=== PATIENT | female | born 1955 | race Two or more races ===

== ENCOUNTER 2023-09-17 17:12 | Inpatient (IN) | payer OTHER ==
[~2023-09-17] VITALS: Ht 165.1 cm; Wt 125.9 kg
[2023-09-17 19:22] LABS: Basophils # (auto) 0.2 10 ^3/uL (0-0.2); Basophils % (auto) 1.7 % (0.0-2.0); Eosinophils # (auto) 0.4 10 ^3/uL (0-0.8); Eosinophils % (auto) 4.2 % (0.0-7.0); Hematocrit 47.3 % (36.0-46.0); Hemoglobin 15.3 g/dL (12.2-16.2); Lymphocytes # (auto) 0.9 10 ^3/uL (0.4-5.4); Lymphocytes % (auto) 8.3 % (10.0-50.0); Mean Corpuscular Hemoglobin 30.3 pg (28.0-32.0); Mean Corpuscular Hgb Conc. 32.4 g/dL (32.0-36.0); Mean Corpuscular Volume 93.5 fL (80.0-100.0); Monocytes # (auto) 0.5 10 ^3/uL (0-1.3); Monocytes % (auto) 5.3 % (0.0-12.0); Neutrophils # (auto) 8.3 10 ^3/uL (1.6-8.6); Neutrophils % (auto) 80.5 % (37.0-80.0); Nucleated Red Blood Cells % 0.1 %; Red Blood Cells 5.06 10^6/uL (4.0-5.20); Red Cell Distribution Width 15.8 % (11.8-14.3); White Blood Cell 10.3 10^3/uL (4.4-10.8)
[2023-09-17 19:35] LABS: INR 1.03 (0.9-1.15); Partial Thromboplastin Time 26.8 SEC (24.5-34.5); Prothrombin Time 10.8 sec (9.3-11.8)
[2023-09-17 19:41] LABS: Alanine Aminotransferase 159 U/L (7-40); Albumin 4.3 g/dL (3.2-4.8); Alkaline Phosphatase 171 U/L (46-116); Anion Gap 12 (5-15); Aspartate Aminotransferase 158 U/L (13-40); BUN/Creatinine Ratio 15.5 (10.0-20.0); Blood Urea Nitrogen 16 mg/dL (9-23); Calcium 10.2 mg/dL (8.5-10.1); Carbon Dioxide 23 mmol/L (20-30); Chloride 108 mmol/L (98-107); Glucose 122 mg/dL (74-106); Potassium 4.1 mmol/L (3.5-5.1); Sodium 143 mmol/L (136-145)
[2023-09-17 19:42] LABS: Total Protein 7.4 g/dL (5.7-8.2)
[2023-09-17] MEDS ORDERED: IOHEXOL 350 MG/ML 100ML IJ ONE (21:31)
[2023-09-17] MEDS ORDERED: HEPARIN SODIUM (PORCINE) 5000 UNITS/ML 1ML VIAL IV ONE ×2 (22:45→23:00)
[2023-09-17] MEDS ORDERED: HEPARIN DRIP/D5W 100UNITS/ML 250 ML IV SCH (22:45)
[2023-09-17] MEDS ORDERED: MORPHINE SULFATE INJ 2 MG/ml SYRG IV PRN (23:15)
[2023-09-17] MEDS ORDERED: HYDROcodone-ACET 5/325MG TAB PO PRN (23:15)
[2023-09-17] MEDS ORDERED: NITROGLYCERIN 0.4 MG SL TAB SL PRN (23:15)
[2023-09-17] MEDS ORDERED: DEXTROSE (50%) 50ML SYRG IV PRN (23:15)
[2023-09-17] MEDS ORDERED: ONDANSETRON HCL 4 MG/2 ML VIAL IV PRN (23:15)
[2023-09-17] MEDS ORDERED: ACETAMINOPHEN 325 MG TAB PO PRN (23:15)
[2023-09-17] MEDS ORDERED: HEPARIN SODIUM (PORCINE) 5000 UNITS/ML 1ML VIAL ONE (23:29)
[2023-09-17] MEDS ORDERED: ALBUTEROL SULF 2.5 MG/0.5ML(0.5%) NEB SOLN NEB PRN (23:30)
[2023-09-18 00:25] VITALS: PULSE 120; RESP 29; O2SAT 96
[2023-09-18 00:52] LABS: INR 1.04 (0.9-1.15); Partial Thromboplastin Time 23.9 SEC (24.5-34.5); Prothrombin Time 11.1 sec (9.3-11.8)
[2023-09-18 01:46] LABS: Basophils # (auto) 0 10 ^3/uL (0-0.2); Basophils % (auto) 0.4 % (0.0-2.0); Eosinophils # (auto) 0.1 10 ^3/uL (0-0.8); Eosinophils % (auto) 1.4 % (0.0-7.0); Hematocrit 43.9 % (36.0-46.0); Hemoglobin 14.5 g/dL (12.2-16.2); Lymphocytes # (auto) 1.4 10 ^3/uL (0.4-5.4); Lymphocytes % (auto) 15.2 % (10.0-50.0); Mean Corpuscular Hemoglobin 30.7 pg (28.0-32.0); Monocytes # (auto) 0.7 10 ^3/uL (0-1.3); Monocytes % (auto) 7.2 % (0.0-12.0); Neutrophils % (auto) 75.8 % (37.0-80.0); Nucleated Red Blood Cells % 0.1 %; Red Blood Cells 4.72 10^6/uL (4.0-5.20); Red Cell Distribution Width 15.7 % (11.8-14.3); White Blood Cell 9.3 10^3/uL (4.4-10.8)
[2023-09-18 01:54] LABS: Urine Bacteria FEW /hpf (None Seen); Urine Blood 1+ /uL (Negative); Urine Clarity Clear (Clear); Urine Color Yellow (Yellow); Urine Mucus FEW (None Seen); Urine Protein, UAD 1+ (Negative); Urine Urobilinogen Normal (Negative); Urine WBC 2 /hpf (0 - 5); Urine pH 5.5 (5.0-8.0)
[2023-09-18 01:57] VITALS: BP 114/73; PULSE 127; RESP 34; TEMP 97.7; O2SAT 92
[2023-09-18 02:03] LABS: Urine Specific Gravity > 1.050 (1.001-1.035)
[2023-09-18 04:10] LABS: Basophils # (auto) 0 10 ^3/uL (0-0.2); Basophils % (auto) 0.4 % (0.0-2.0); Eosinophils # (auto) 0.1 10 ^3/uL (0-0.8); Eosinophils % (auto) 1.7 % (0.0-7.0); Hematocrit 41.9 % (36.0-46.0); Lymphocytes # (auto) 1.3 10 ^3/uL (0.4-5.4); Lymphocytes % (auto) 14.9 % (10.0-50.0); Mean Corpuscular Hemoglobin 30.8 pg (28.0-32.0); Mean Corpuscular Hgb Conc. 33.5 g/dL (32.0-36.0); Mean Corpuscular Volume 92.1 fL (80.0-100.0); Monocytes # (auto) 0.5 10 ^3/uL (0-1.3); Neutrophils # (auto) 6.8 10 ^3/uL (1.6-8.6); Red Blood Cells 4.55 10^6/uL (4.0-5.20); Red Cell Distribution Width 15.7 % (11.8-14.3); White Blood Cell 8.8 10^3/uL (4.4-10.8)
[2023-09-18 04:34] LABS: Alanine Aminotransferase 121 U/L (7-40); Albumin 3.9 g/dL (3.2-4.8); Alkaline Phosphatase 148 U/L (46-116); Anion Gap 11 (5-15); Aspartate Aminotransferase 74 U/L (13-40); BUN/Creatinine Ratio 26.7 (10.0-20.0); Blood Urea Nitrogen 24 mg/dL (9-23); Calcium 9.2 mg/dL (8.7-10.4); Carbon Dioxide 21 mmol/L (20-30); Chloride 109 mmol/L (98-107); Glucose 134 mg/dL (74-106); Potassium 4.4 mmol/L (3.5-5.1); Sodium 141 mmol/L (136-145)
[2023-09-18 04:35] LABS: Bilirubin, Total 1.1 mg/dL (0.2-1.0); Total Protein 6.5 g/dL (5.7-8.2)
[2023-09-18] MEDS: InsuLIN REG 1unit/0.01ml Soln (100units/ml) SC SCH ×4 (06:25→22:00)
[2023-09-18] MEDS: ACCU-CHEK COMFORT CURVE STRIP VI SCH ×4 (06:26→22:31)
[2023-09-18 09:05] LABS: Prothrombin Time 11.7 sec (9.3-11.8)
[2023-09-18 09:06] LABS: Partial Thromboplastin Time > 139.0 SEC (24.5-34.5)
[2023-09-18] MEDS ORDERED: LOSARTAN POTASSIUM 25 MG TAB PO SCH (10:00)
[2023-09-18 10:24] VITALS: O2SAT 95
[2023-09-18 10:25] VITALS: O2SAT 95
[2023-09-18] MEDS ORDERED: HEPARIN DRIP/D5W 100UNITS/ML 250 ML IV SCH ×2 (10:30→19:00)
[2023-09-18] MEDS: SODIUM CHLORIDE 0.9% 1,000 ML IV SCH (13:15)
[2023-09-18] MEDS: ceFAZolin 1GM/50ML 50 ML IV SCH ×2 (14:00→22:31)
[2023-09-18 17:55] LABS: INR 1.13 (0.9-1.15); Prothrombin Time 11.8 sec (9.3-11.8)
[2023-09-18 17:58] LABS: Partial Thromboplastin Time 105.7 SEC (24.5-34.5)
[2023-09-18 18:42] VITALS: O2SAT 93
[2023-09-18 19:35] VITALS: RESP 20; O2SAT 93
[2023-09-18] MEDS ORDERED: ATORVASTATIN 20 MG TAB PO SCH (22:00)
[2023-09-19] MEDS: SODIUM CHLORIDE 0.9% 1,000 ML IV SCH ×3 (02:35→21:02)
[2023-09-19] MEDS: ceFAZolin 1GM/50ML 50 ML IV SCH ×4 (06:11→16:27)
[2023-09-19 06:15] LABS: Basophils # (auto) 0 10 ^3/uL (0-0.2); Basophils % (auto) 0.5 % (0.0-2.0); Eosinophils # (auto) 0.2 10 ^3/uL (0-0.8); Eosinophils % (auto) 2.9 % (0.0-7.0); Hematocrit 41.2 % (36.0-46.0); Hemoglobin 13.8 g/dL (12.2-16.2); Lymphocytes # (auto) 1.8 10 ^3/uL (0.4-5.4); Lymphocytes % (auto) 22.1 % (10.0-50.0); Mean Corpuscular Hemoglobin 30.8 pg (28.0-32.0); Mean Corpuscular Hgb Conc. 33.5 g/dL (32.0-36.0); Mean Corpuscular Volume 92.1 fL (80.0-100.0); Monocytes # (auto) 0.5 10 ^3/uL (0-1.3); Monocytes % (auto) 6.6 % (0.0-12.0); Neutrophils # (auto) 5.7 10 ^3/uL (1.6-8.6); Neutrophils % (auto) 67.9 % (37.0-80.0); Nucleated Red Blood Cells % 0.2 %; Red Blood Cells 4.48 10^6/uL (4.0-5.20); Red Cell Distribution Width 15.5 % (11.8-14.3); White Blood Cell 8.3 10^3/uL (4.4-10.8)
[2023-09-19 06:26] LABS: Alanine Aminotransferase 82 U/L (7-40); Albumin 3.9 g/dL (3.2-4.8); Alkaline Phosphatase 145 U/L (46-116); Anion Gap 6 (5-15); Aspartate Aminotransferase 38 U/L (13-40); BUN/Creatinine Ratio 25.3 (10.0-20.0); Blood Urea Nitrogen 21 mg/dL (9-23); Calcium 9.2 mg/dL (8.7-10.4); Carbon Dioxide 24 mmol/L (20-30); Chloride 108 mmol/L (98-107); Glucose 120 mg/dL (74-106); Potassium 4.2 mmol/L (3.5-5.1); Sodium 138 mmol/L (136-145)
[2023-09-19 06:27] LABS: Bilirubin, Total 1.2 mg/dL (0.2-1.0); Total Protein 6.6 g/dL (5.7-8.2)
[2023-09-19] MEDS: InsuLIN REG 1unit/0.01ml Soln (100units/ml) SC SCH ×4 (06:48→22:50)
[2023-09-19] MEDS: ACCU-CHEK COMFORT CURVE STRIP VI SCH ×4 (07:21→22:49)
[2023-09-19 07:24] VITALS: O2SAT 92
[2023-09-19 08:25] VITALS: PULSE 110; RESP 24; O2SAT 92
[2023-09-19 08:30] LABS: INR 1.07 (0.9-1.15); Partial Thromboplastin Time 53.8 SEC (24.5-34.5); Prothrombin Time 11.4 sec (9.3-11.8)
[2023-09-19] MEDS ORDERED: APIXABAN 5 MG TAB PO ONE (10:45)
[2023-09-19 14:29] LABS: INR 1.07 (0.9-1.15); Partial Thromboplastin Time 29.8 SEC (24.5-34.5); Prothrombin Time 11.4 sec (9.3-11.8)
[2023-09-19 20:56] VITALS: PULSE 112; RESP 25; O2SAT 97
[2023-09-19] MEDS ORDERED: APIXABAN 5 MG TAB PO SCH (22:00)
[2023-09-19] MEDS: ENOXAPARIN SOD 120 MG/0.8 ML SYRINGE SC SCH (22:49)
[2023-09-20] VITALS (14 sets, daily range): BP systolic 102–130; BP diastolic 55–85; PULSE 94–115; RESP 12–20; TEMP 98–99.8; O2SAT 94–99
[2023-09-20 05:15] LABS: Basophils # (auto) 0 10 ^3/uL (0-0.2); Basophils % (auto) 0.5 % (0.0-2.0); Eosinophils # (auto) 0.3 10 ^3/uL (0-0.8); Eosinophils % (auto) 2.9 % (0.0-7.0); Hematocrit 40.6 % (36.0-46.0); Hemoglobin 13.2 g/dL (12.2-16.2); Lymphocytes % (auto) 22.2 % (10.0-50.0); Mean Corpuscular Hemoglobin 30.4 pg (28.0-32.0); Mean Corpuscular Hgb Conc. 32.6 g/dL (32.0-36.0); Mean Corpuscular Volume 93.2 fL (80.0-100.0); Monocytes # (auto) 0.6 10 ^3/uL (0-1.3); Monocytes % (auto) 6.2 % (0.0-12.0); Neutrophils # (auto) 6.2 10 ^3/uL (1.6-8.6); Neutrophils % (auto) 68.2 % (37.0-80.0); Nucleated Red Blood Cells % 0.1 %; Red Blood Cells 4.35 10^6/uL (4.0-5.20); Red Cell Distribution Width 15.7 % (11.8-14.3); White Blood Cell 9.1 10^3/uL (4.4-10.8)
[2023-09-20 06:02] LABS: Alanine Aminotransferase 53 U/L (7-40); Albumin 3.5 g/dL (3.2-4.8); Alkaline Phosphatase 126 U/L (46-116); Anion Gap 8 (5-15); BUN/Creatinine Ratio 14.4 (10.0-20.0); Blood Urea Nitrogen 13 mg/dL (9-23); Calcium 8.9 mg/dL (8.7-10.4); Carbon Dioxide 22 mmol/L (20-30); Chloride 109 mmol/L (98-107); Glucose 113 mg/dL (74-106); Potassium 4.6 mmol/L (3.5-5.1); Sodium 139 mmol/L (136-145)
[2023-09-20 06:03] LABS: Aspartate Aminotransferase 29 U/L (13-40); Total Protein 6.1 g/dL (5.7-8.2)
[2023-09-20] MEDS: ceFAZolin 1GM/50ML 50 ML IV SCH ×3 (06:50→22:19)
[2023-09-20] MEDS: InsuLIN REG 1unit/0.01ml Soln (100units/ml) SC SCH ×4 (07:00→22:00)
[2023-09-20] MEDS: ACCU-CHEK COMFORT CURVE STRIP VI SCH ×4 (07:01→22:00)
[2023-09-20 07:58] LABS: Base Excess -1.9 mmol/L (-2.0-2.0)
[2023-09-20] MEDS: ENOXAPARIN SOD 120 MG/0.8 ML SYRINGE SC SCH ×2 (10:16→22:20)
[2023-09-20] MEDS ORDERED: LIDOCAINE 2%HCL (LOCAL ANESTH.) INJ 20ML MDV ONE (13:58)
[2023-09-20] MEDS ORDERED: IODIXANOL 320MG/ML 100ML BTL IV ONE ×2 (13:58→15:08)
[2023-09-20] MEDS ORDERED: fentaNYL CITRATE 100 MCG/2 ML VL ONE (14:13)
[2023-09-20] MEDS ORDERED: ANGIOMAX 250 MG VIAL IV ONE (14:13)
[2023-09-20] MEDS ORDERED: SODIUM CHL 0.9% 0 ML ONE (14:14)
[2023-09-20] MEDS ORDERED: MIDAZOLAM HCL 2MG/2ML 2ml VIAL (1mg/ml) ONE (14:14)
[2023-09-20] MEDS ORDERED: HEPARIN SODIUM (PORCINE) 5000 UNITS/ML 1ML VIAL ONE (14:44)
[2023-09-20] MEDS ORDERED: HEPARIN 1,000 UNITS/ml 1ML VIAL ONE (15:10)
[2023-09-20] MEDS: SODIUM CHLORIDE 0.9% 1,000 ML IV SCH ×2 (18:35→22:20)
[2023-09-20] MEDS ORDERED: METF-370 PO (20:39)
[2023-09-20] MEDS ORDERED: LOSA25TA15 PO (20:39)
[2023-09-20] MEDS ORDERED: ATO40T PO (20:39)
[2023-09-21] VITALS (8 sets, daily range): BP systolic 96–127; BP diastolic 55–70; PULSE 72–108; RESP 16–20; TEMP 97.7–98.6; O2SAT 92–98
[2023-09-21] MEDS: ceFAZolin 1GM/50ML 50 ML IV SCH ×2 (05:07→15:06)
[2023-09-21] MEDS: InsuLIN REG 1unit/0.01ml Soln (100units/ml) SC SCH ×3 (06:52→17:00)
[2023-09-21] MEDS: ACCU-CHEK COMFORT CURVE STRIP VI SCH ×3 (06:52→18:29)
[2023-09-21] MEDS ORDERED: guaiFENesin 200 MG/10 ML UD PO PRN (07:00)
[2023-09-21] MEDS ORDERED: APIXABAN 5 MG TAB PO SCH (10:00)
[2023-09-21 11:09] LABS: Basophils # (auto) 0.1 10 ^3/uL (0-0.2); Basophils % (auto) 0.5 % (0.0-2.0); Eosinophils # (auto) 0.4 10 ^3/uL (0-0.8); Eosinophils % (auto) 3.8 % (0.0-7.0); Hematocrit 41.1 % (36.0-46.0); Hemoglobin 13.4 g/dL (12.2-16.2); Lymphocytes # (auto) 1.4 10 ^3/uL (0.4-5.4); Lymphocytes % (auto) 13.1 % (10.0-50.0); Mean Corpuscular Hemoglobin 30.7 pg (28.0-32.0); Mean Corpuscular Hgb Conc. 32.7 g/dL (32.0-36.0); Mean Corpuscular Volume 93.8 fL (80.0-100.0); Monocytes # (auto) 0.5 10 ^3/uL (0-1.3); Monocytes % (auto) 4.8 % (0.0-12.0); Neutrophils # (auto) 8.2 10 ^3/uL (1.6-8.6); Neutrophils % (auto) 77.8 % (37.0-80.0); Nucleated Red Blood Cells % 0.2 %; Red Blood Cells 4.38 10^6/uL (4.0-5.20); Red Cell Distribution Width 15.9 % (11.8-14.3); White Blood Cell 10.5 10^3/uL (4.4-10.8)
[2023-09-21 11:24] LABS: Anion Gap 6 (5-15); Carbon Dioxide 25 mmol/L (20-30); Chloride 109 mmol/L (98-107); Sodium 140 mmol/L (136-145)
[2023-09-21 11:26] LABS: Calcium 9.4 mg/dL (8.5-10.1); Potassium 4.8 mmol/L (3.5-5.1)
[2023-09-21 11:30] LABS: Glucose 113 mg/dL (74-106)
[2023-09-21 11:56] LABS: BUN/Creatinine Ratio 9.7 (10.0-20.0); Blood Urea Nitrogen 7 mg/dL (9-23)
[2023-09-26] MEDS ORDERED: APIXABAN 5 MG TAB PO SCH (22:00)
[2023-09-28] MEDS ORDERED: APIXABAN 5 MG TAB PO SCH (10:00)
== END 2023-09-21 21:15 | disposition short-term general hospital (02) | DRG 163 ==
LOC: ER 17:12 → EDBD 17:12 → TELE 23:19 → TELE-WESTW 09-20 17:46 → TELE 09-20 18:27
PROVIDERS: ADMIT Nurse Practitioner; ATTEND Internal Medicine
PROC: 02CQ3ZZ Extirpation of Matter from Right Pulmonary Artery, Percutaneous Approach (ICD-10-PCS; principal; 2023-09-20)
PROC: 4A023N6 Measurement of Cardiac Sampling and Pressure, Right Heart, Percutaneous Approach (ICD-10-PCS; 2023-09-20)
DX: I26.99 Other pulmonary embolism without acute cor pulmonale (principal); I21.A1 Myocardial infarction type 2; J96.01 Acute respiratory failure with hypoxia; I20.0 Unstable angina; L03.115 Cellulitis of right lower limb; Z68.42 Body mass index [BMI] 45.0-49.9, adult; E66.01 Morbid (severe) obesity due to excess calories; E78.5 Hyperlipidemia, unspecified; E11.9 Type 2 diabetes mellitus without complications; I11.9 Hypertensive heart disease without heart failure; R55 Syncope and collapse; R74.01 Elevation of levels of liver transaminase levels; R00.0 Tachycardia, unspecified
CPT/HCPCS: 36415; 36600; 71045; 71275; 80048; 80053; 81001; 82805; 82962; 83036; 83880; 84443; 84484; 85025; 85379; 85610; 85730; 87086; 93005; 93306; 93970; 96361; 96365; 96367; 96376; 99152; 99291; G0378; J1815; J2250; Q9967